=== PATIENT | female | born 1990 | race African-American/Black ===

== ENCOUNTER 2018-06-11 14:44 | Emergency (ER) | payer SELFPAY ==
[~2018-06-11] VITALS: Ht 162.6 cm; Wt 84.0 kg
[2018-06-11] MEDS ORDERED: DIPHENHYDRAMINE 25MG CAPSULE PO ONE (16:15)
[2018-06-11 16:31] VITALS: BP 139/86
== END 2018-06-11 16:47 | disposition home or self-care (01) ==
LOC: ER 16:37
DX: T78.40XA Allergy, unspecified, initial encounter (principal); X58.XXXA Exposure to other specified factors, initial encounter; Z88.0 Allergy status to penicillin; Z88.1 Allergy status to other antibiotic agents
CPT/HCPCS: 99283; Q0163